=== PATIENT | male | born 2005 | race Caucasian/White ===

== ENCOUNTER 2024-12-22 12:10 | Emergency (ER) | payer OTHER, SELFPAY ==
[2024-12-22 12:12] VITALS: BP 163/103
--- NOTE | 2024-12-22 12:54 | ED.GENMED ---
Addendum entered and electronically signed by Thomas Cartagena MD 12/23/24 20:18:
Clearly looks improved. Nontoxic. No systemic symptoms. No drainage. Surrounding erythema is improved. Swelling improved. Will continue current management and follow-up. Pulmonary is staff.
Original Note:
History of Present Illness
<NARESH Carroll - Last Filed: 12/22/24 15:22>
General
Chief Complaint: Skin Problem
Source: patient and family
Exam Limitations: none
Time Seen by Provider: 12/22/24 12:22
Nursing documentation reviewed up to this point in time: agreed with
History of Present Illness
History of Present Illness:
Patient is a 19-year-old male who presents to the ER complaining of redness and swelling to right anterior lower knee. Patient started with a red bump on 4 days ago. On Saturday he went to urgent care and was given doxycycline and
Bactroban. He took 1 dose of doxycycline Saturday, 2 yesterday and 1 dose this morning. He complains of increasing redness to the area. He also complains of soreness in his right groin. He denies any injury. He was at a concert last week and
bumping into people.
Phy Exam
<NARESH Carroll - Last Filed: 12/22/24 15:22>
General Physical Exam
General Presentation: no apparent distress
General age: appears stated age
General Skin: warm and dry
General Habitus: normal
General Mental: alert
General Hydration: appears well hydrated
Neurological Exam
Neurological Exam: alert and oriented x3
Musculoskeletal Exam
Musculoskeletal Exam: full ROM and other (Right lower EXTR strong pulses lower aspect of anterior knee not over the patella with small amount of erythema and open area that is draining ;good flexion/extension )
Skin Exam
Skin Exam: normal color and warm/dry
Psychiatric Exam
Psychiatric Exam: normal mood/affect
Course
<NARESH Carroll - Last Filed: 12/22/24 15:22>
Orders/Labs/Results
Orders:
Orders
12/22/24 13:31
Wound Culture [Wound/Abscess/Other Culture] Urgent
CATINA Source: Leg
Specimen Description: Right
Date Specimen was Collected: 12/22/24
Time Specimen was Collected: 13:29
12/22/24 14:27
Cephalexin Monohydrate [Keflex] 500 mg PO NOW STA
12/22/24 15:13
Vital Signs- Treatment ONCE
Frequency: Once
Vital Signs
Initial and Last Documented VS:
Initial Vital Signs
Temp Pulse Resp BP Pulse Ox
98.7 F 81 16 163/103 100
12/22/24 12:12 12/22/24 12:12 12/22/24 12:12 12/22/24 12:12 12/22/24 12:12
Last Documented Vital Signs
Temp Pulse Resp BP Pulse Ox
98.7 F 81 16 163/103 100
12/22/24 12:12 12/22/24 12:12 12/22/24 12:12 12/22/24 12:12 12/22/24 13:08
Bottoming Room Inspector consulted with Physician
Bottoming Room Inspector consulted with physician?: Yes (xavier )
<Thomas Cartagena MD - Last Filed: 12/22/24 14:46>
Orders/Labs/Results
Orders:
Orders
12/22/24 13:31
Wound Culture [Wound/Abscess/Other Culture] Urgent
CATINA Source: Leg
Specimen Description: Right
Date Specimen was Collected: 12/22/24
Time Specimen was Collected: 13:29
12/22/24 14:27
Cephalexin Monohydrate [Keflex] 500 mg PO NOW STA
12/22/24 15:13
Vital Signs- Treatment ONCE
Frequency: Once
Vital Signs
Initial and Last Documented VS:
Initial Vital Signs
Temp Pulse Resp BP Pulse Ox
98.7 F 81 16 163/103 100
12/22/24 12:12 12/22/24 12:12 12/22/24 12:12 12/22/24 12:12 12/22/24 12:12
Last Documented Vital Signs
Temp Pulse Resp BP Pulse Ox
98.7 F 81 16 163/103 100
12/22/24 12:12 12/22/24 12:12 12/22/24 12:12 12/22/24 12:12 12/22/24 13:08
Procedures
<NARESH Carroll - Last Filed: 12/22/24 15:22>
Other
Indication for procedure:: drainage to right anterior knee not involving the patella
Procedure completed by: Myself
Additional Procedure:
Betadine prep area was anesthetized with lidocaine 1% very small incision was made to create a slightly larger opening(since area was already open and draining) no more additional drainage
<NARESH Carroll - Last Filed: 12/22/24 15:22>
MDM/Problems Addressed
Differential Diagnosis Includes:
not limited to: bursitis, abscess,
MDM/Problems Addressed:
Patient with small amt of redness and drainage to right knee for the past several days. has taken 1 full day of doxycycline and 2 additional doses. No fevers. he is nontoxic well-appearing case reviewed ED physician I was able to express
drainage without initially opening wound as it was draining on its own . I then did go further and slightly create a larger opening with scapel to allow for drainage. Wound culture was sent. Will add Keflex and have patient return tomorrow for
wound check.
<NARESH Carroll - Last Filed: 12/22/24 15:22>
*Pulse Oximetry
SaO2: 100
Oxygen Mode of Delivery: Room air
Patient hypoxic: no
*Critical Care Note
Total Time (30-74mins, 75-104mins- exclusive of procedures): Not Applicable
ED Attending Note
<NARESH Carroll - Last Filed: 12/22/24 15:22>
-
Portions of this chart may have been created with voice recognition software.� Occasional wrong word or��sound alike� substitutions may have occurred due to the inherent limitations of voice recognition software.
<Thomas Cartagena MD - Last Filed: 12/22/24 14:46>
ED Attending Note
Patient seen and examined by attending physician: Yes
I performed the substantive portion of visit, reviewed & personally made and approve the management plan that is documented in note by myself or RENAN.: Yes
ED Attending Note:
19-year-old male swelling redness drainage to the right knee just below the patella. Started doxycycline 2 days ago. No systemic symptoms.
On exam the bursa to the right subpatellar area is swollen and indurated with some small amount of purulent drainage. Small adenopathy in the right groin that is tender. Nontoxic otherwise.
Impression is likely infected bursa right knee. Possibly superficial to the bursa however. Currently draining some. Will send culture. Add cephalosporin to the doxycycline. I can recheck this wound tomorrow evening. Will open up slightly more.
Discharge Plan
Departure
Patient Disposition: Home (Routine Discharge)
Date of Disposition: 12/22/24
Time of Disposition: 15:13
Patient with high blood pressure during this ER visit?: Yes
Condition: Fair
Covid-19: Not Applicable
Discharge Problem:
Abscess of bursa of right knee
Instructions: BLOOD PRESSURE, Skin Abscess
Prescriptions:
New
cephalexin 500 mg capsule
500 mg PO Q6H Qty: 28 0RF
Referrals:
NONE,* [Family Provider, Internal Medicine]
Activity Restrictions/Additional Instructions:
As discussed continue doxycycline and start Keflex 1 tablet every 6 hours for the next week. Antibiotic was sent to the pharmacy. Return here tomorrow for a quick wound check. Wash twice a day with soap and water pat dry and allowed to drain you
may keep covered but do not apply antibiotic to the area. Return if any worsening of symptoms including fever chills pain
Interventions
Interventions:
*Risk Screen - Suicide Last Done: 12/22/24 12:12
*General Assessment Last Done: 12/22/24 12:12
*ED COVID-19 Vaccine History Last Done: 12/22/24 12:12
*ED Influenza Vaccine History Last Done: 12/22/24 12:12
ED-Skin Assessment Last Done: 12/22/24 13:05
Discharge Date and Time
Print Language: PASHTO
[2024-12-22 15:26] VITALS: BP 142/74
[2024-12-22 15:50] VITALS: BP 148/68
[2024-12-22] MEDS: KEFLEX 500 MG PO (15:51)
== END 2024-12-22 15:52 | disposition home or self-care (01) ==
LOC: EMR 12:10
PROVIDERS: EMERGENCY PHYSICIAN Emergency Medicine
DX: M71.061 Abscess of bursa, right knee (principal)
CPT/HCPCS: 27301; 99283; 87070; 87147; 87186; 87205